=== PATIENT | female | born 2000 | race Caucasian/White ===

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

== ENCOUNTER 2021-01-03 12:36 | Emergency (ER) | payer OTHER, SELFPAY ==
[2021-01-03 12:37] VITALS: BP 128/73; PULSE 81; RESP 16; TEMP 36.8; O2SAT 98; BMI 24.9
[2021-01-03] MEDS: Orphenadrine 60 MG/2 ML Ampul IM (13:39)
[2021-01-03] MEDS: Ketorolac 30 MG/ML Syringe IM (13:39)
--- NOTE | 2021-01-03 14:39 | ED.VISSUMM ---
- ER Visit Summary Date of Service: 01/03/21 Chief Complaint: Back pain History of Present Illness: The patient is a [address] Escoto. She reports that she leaned over and had the abrupt onset of a low back pain. It is a continuous sharp pain is 910 at worst and 5-10 currently. Is worsened by movement or sitting up straight. Is relieved by leaning to the left and Tylenol. No radiation to her legs. No numbness or weakness in her legs. No problems with her bowels or bladder. No groin numbness. Patient denies any other preceding trauma. No fall, MVA, or change in activity. She denies red flags. Physical Examination: Vitals: Stable. Afebrile. General: A&O x 3. NAD. Cardiovascular exam: Regular rate and rhythm, no murmur, rub or gallop. Respiratory exam: Clear to auscultation bilaterally. No wheezes or stridor. Abdominal exam: Soft, nontender, nondistended, normal bowel sounds. No peritoneal signs. Back: Diffuse moderate tenderness to palpation over the lumbar spine and the paraspinous musculature in the lumbar region. No point tenderness. Negative straight leg bilaterally. 5/5 DF, PF, EHL bilaterally. Normal sensation to light touch throughout. Extremity: No clubbing, cyanosis, or edema. Test Results: An OARRS report was obtained which was negative. Emergency Department Course and Treatment: Patient was initially given Toradol and Norflex IM with no relief. She was then given [place] p.o. Treatment Plan: Patient will be discharged with naproxen and [place]. Instructed to follow-up with her primary care physician in 3 to 5 days if not improving. Return to the emergency department for any worsening symptoms. Disposition: To home in improved and stable condition. Impression: 1. Low back pain. This note was generated with atokore dictation software. It may contain incorrect words, spelling, and punctuation that were not noted in review of the chart prior to signing ED Disposition - Plan for ED Patient: Disposition: Home or Assisted Living Instructions: ED Back Spasm, No Trauma Prescriptions: Naproxen [Naprosyn] 500 mg PO BID #14 tablet Prescription Printed Hydrocodone Bitart/Apap 5-325 [[place] 5MG-325MG] 1 tablet PO Q4H PRN PRN 2 Days #10 tab PRN Reason: Pain Prescription Printed Referrals: Justin Carrizales MD [Primary Care Provider] - 3-5 Days if not improving
[2021-01-03] MEDS: Ondansetron ODT 4 MG Tablet PO (15:13)
[2021-01-03] MEDS: HYDROcodone Bitartrate/Apap 5/325 Tablet PO (15:13)
[2021-01-03 15:15] VITALS: BP 111/70; PULSE 69; RESP 16; O2SAT 96
== END 2021-01-03 15:16 | disposition home or self-care (01) ==
PROVIDERS: Emergency Provider Emergency Medicine; PCP Family Medicine
DX: M54.5 Low back pain (principal); M41.9 Scoliosis, unspecified
CPT/HCPCS: 96372; 99283

== ENCOUNTER 2021-12-24 21:58 | Emergency (ER) | payer OTHER, SELFPAY ==
[2021-12-24 21:59] VITALS: BP 112/70; PULSE 70; RESP 17; TEMP 36.8; O2SAT 100; BMI 25.7
--- NOTE | 2021-12-24 22:23 | EX.ED.VIS.EY ---
HPI History of Present Illness Chief Complaint: Eye Problem Narrative Narrative: 21-year-old female presenting today for both right eye pain and and right elbow pain. Patient states that she was at a trampoline park and she jumped down on the trampoline which she bounced up and hit her own right eye with her own right knee and did not get knocked out but felt foggy for a few hours. She had a superficial abrasion over the right eyelid. She does not have any visual complaints. No eye watering or discharge. She states that she is more concerned that her right elbow hurts and she does not know why. She has trouble straightening it and bending it. She does not recall hitting it. PFSH PFSH Home Medications naproxen 500 mg PO BID #14 tablet 01/03/21 [Rx Last Taken Unknown] naproxen [Naprosyn] 500 mg PO BID PRN #20 tab 12/24/21 [Rx Last Taken Unknown] Allergy/AdvReac Type Severity Reaction Status Date / Time No Known Allergies Allergy Verified 12/24/21 22:01 Social History Smoking Status: Never smoker ROS ROS ED Constitutional Constitutional ED: Denies chills or fever(s) Eyes Eyes: Reports other Details: Right periorbital bruising and swelling. Superficial eyelid abrasion to the right eye. ; Denies blurry vision or change in vision ENT ENT ED: Denies rhinorrhea or sore throat Cardiovascular Cardiovascular: Denies chest pain or palpitations Respiratory/Chest Respiratory/Chest: Denies cough or dyspnea Gastrointestinal Gastrointestinal: Denies abdominal pain, nausea or vomiting Genitourinary Genitourinary ED: Denies dysuria Musculoskeletal Musculoskeletal: Reports other Details: Right elbow pain ; Denies arthralgias or myalgias Integumentary Reports Abrasions Neurologic Neurologic: Denies headache(s) or paresthesias EXAM Physical Exam Const Vital Signs: 12/24/21 21:59 Temperature 98.2 F Temperature Source Temporal Pulse Rate 70 Respiratory Rate 17 Blood Pressure 112/70 Blood Pressure Mean 84 Pulse Ox 100 Oxygen Delivery Method Room Air HEENT HEENT Narrative: Periorbital bruising and swelling. Superficial abrasion to right eyelid. No active bleeding. Wound is well approximated. Eyes Pupil: PERRL and accommodation reflex normal Neck no lymphadenopathy and supple Resp normal respiratory effort Cardio regular rate and regular rhythm Extremity Extremity Narrative: Tenderness palpation of the right olecranon process. Full range of motion in extension but pain with flexion to the olecranon. Neuro oriented x3, CN's II-XII intact bilaterally, moves all extremities and no sensory deficits noted Sensorium / Orientation: alert and oriented to person Psych Mood & Affect: Negative for depressed or tearful MDM MDM MDM Narrative Medical decision making narrative: Patient presenting with supraorbital bruising. She has a small superficial abrasion of the right eyelid. This does not need any repair. Her visual acuity is normal at the bedside. She does not have any eye watering or concern for abrasion. Patient does have tenderness to palpation over the right olecranon. She has limited range of motion in flexion but extension, supination, pronation are normal. I will obtain an x-ray of the right elbow. X-ray of the right elbow on my interpretation shows no fracture or subluxation. Patient counseled she will need to alternate ice and heat and use NSAIDs for pain control. Patient likely has a mild concussion to from her head injury. I do not believe she needs CT imaging. She is given return precautions. Patient discharged in stable condition. Impression: 1. Closed head injury 2. Periorbital contusion on the right 3. Right elbow contusion 4. Superficial eyelid abrasion right eye Discharge Plan Triage Chief Complaint: Eye Problem ED Provider: Henry Sky Dx/Rx/DC Orders Instructions: ED Abrasion, ED Concussion, ED Contusion, Elbow, ED Facial Contusion Prescriptions: New naproxen [Naprosyn] 500 mg tablet 500 mg PO BID PRN (Reason: pain) Qty: 20 RF: 0 No Action naproxen 500 MG tablet 500 mg PO BID Qty: 14 RF: 0 Primary Care Provider: Justin Carrizales Referrals: Justin Carrizales MD [Primary Care Provider] - Disposition Disposition: Home, Self Care
--- NOTE | 2021-12-24 22:30 | RAD_ITS ---
STUDY: X-RAY - RIGHT ELBOW REASON FOR EXAM: Female, 21 years old. pain TECHNIQUE: 3 view(s) of the elbow. COMPARISON: None. FINDINGS: Normal visualized humerus, radius and ulna. Normal radiocapitellar and ulnotrochlear articulations. The soft tissue structures are unremarkable. RAD/Elbow min 3 Views IMPRESSION: Normal x-ray examination of the elbow. Electronically Signed: Chase Ross DO at 23:18 EDT ,
== END 2021-12-25 00:10 | disposition home or self-care (01) ==
PROVIDERS: Emergency Provider Student in an Organized Health Care Education/Training Program; PCP Family Medicine; Visit Provider Student in an Organized Health Care Education/Training Program
DX: S00.11XA Contusion of right eyelid and periocular area, initial encounter (principal); S50.01XA Contusion of right elbow, initial encounter; S00.211A Abrasion of right eyelid and periocular area, initial encounter; X58.XXXA Exposure to other specified factors, initial encounter; Y93.44 Activity, trampolining; Y92.830 Public park as the place of occurrence of the external cause
CPT/HCPCS: 73080; 99284

== ENCOUNTER 2022-01-11 16:16 | Outpatient (CLI) | payer OTHER, SELFPAY ==
[2022-01-11 17:48] LABS: Absolute Lymphocyte Count 2.82 X10^3/uL (0.83-4.51); Absolute Neutrophil Count 8.8 X10^3/uL (2.0-7.7); Basophil# 0.05 X10^3/uL; Basophil% 0.4 % (0-1); Eosinophil# 0.14 X10^3/uL; Eosinophils% 1.1 % (0-5); Hemoglobin 13.4 g/dL (12.0-15.0); Lymphocyte # 2.82 X10^3/ul (0.83-4.51); Mean Corp Hgb Conc 34.4 g/dL (32-36); Mean Corpuscular Volume 87.4 fL (81-99); Mean Platelet Vol. 10.2 fl (6.2-12.0); Monocyte# 0.91 X10^3/uL; Monocyte% 7.1 % (0-10); NRBC Flagged by Analyzer 0.2 % (0-5); Neutrophil # 8.84 X10^3/uL (2.7-7.7); Neutrophil % 69.2 % (47-70); Platelet Count 300 K/mm3 (150-450); RBC Distribution Width CV 12.3 % (11.6-14.6); RBC Distribution Width SD 39.2 fl (35.1-43.9); Red Blood Count 4.46 M/mm3 (4.2-5.4); White Blood Count 12.8 K/mm3 (4.4-11.0)
[2022-01-11 18:42] LABS: AST(SGOT) 13 U/L (15-37); Alanine Aminotransfer ALT/SGPT 18 U/L (13-56); Albumin, Serum 4.2 g/dL (3.2-5.0); Alkaline Phosphatase 80 U/L (45-117); Anion Gap 6 (5-15); BUN 8 mg/dL (7-18); BUN/Creat Ratio 13.9 RATIO (10-20); Calcium,Total 9.3 mg/dL (8.5-10.1); Chloride 106 mmol/L (98-107); Creatinine, Serum 0.57 mg/dL (0.55-1.02); EST Glomerular Filtration Rate 140 mL/min (>60); Est Glom Filt Rate - Afr Amer 169 mL/min (>60); Globulin 4.3 g/dL (2.2-4.2); Glucose 73 mg/dL (74-106); Potassium 3.8 mmol/L (3.5-5.1); Protein, Total 8.5 g/dL (6.4-8.2); Sodium Level 137 mmol/L (136-145)
[2022-01-14 18:17] LABS: EBV Acute VCA IgM < 36.0 U/mL (0.0-35.9); EBV Nuclear Antigen IgG < 18.0 U/mL (0.0-17.9); EBV-VCA IgG < 18.0 U/mL (0.0-17.9)
== END 2022-01-11 23:59 | disposition home or self-care (01) ==
PROVIDERS: PCP Family Medicine; Referring Provider Family Medicine; Visit Provider Family Medicine
DX: J02.9 Acute pharyngitis, unspecified (principal)
CPT/HCPCS: 36415; 80053; 85025; 86664; 86665; 87070

== ENCOUNTER 2022-03-12 15:32 | Outpatient (CLI) | payer OTHER, SELFPAY ==
--- NOTE | 2022-03-12 11:45 | TONS_PTH ---
PATIENT: CORA GREGG LOC: [facility] U#:[id number] AGE/SX: ROOM: RE03/12/[address]: Dr. Reji Tolentino MD : 2000 BED: DIS: 03/12/2022 SPEC #: [id number] RECD: 03/12/22 15:25 STATUS: JUAN REMed #: [id number] HEATHER: 03/12/22 11:[address]: Reji Tolentino DEPT: SURGICAL PATHOLOGY RECD BY: Daisy Prajapati ENTERED: 03/13/22 11:21 SP TYPE: TONSILS OTHR DR: Dr. Bienvenido Carrizales MD [facility] Tissues: Tonsil, NOS Procedures: Surgery Specimen Level III HEADER OPERATION: Tonsillectomy PRE-OP DIAGNOSIS: Chronic tonsillitis TISSUE SUBMITTED: Bilateral tonsils, pin on right MICROSCOPIC DIAGNOSIS Bilateral tonsils, tonsillectomy: Reactive lymphoid hyperplasia, consistent with chronic tonsillitis. SJ:олег 03/14/2022 MICROSCOPIC DESCRIPTION Slides are reviewed. GROSS DESCRIPTION Received is one container labeled with the patient's name and designated tonsils - pin on right are two tonsils that in aggregate weigh 20.8 gm. The right tonsil has a pin on it and measures 3.8 x 2.5 x 2 cm. The left tonsil measures 3.6 x 2.5 x 1.7 cm. Both tonsils are similar in appearance. The external surfaces are pink-biswas, smooth, glistening and somewhat lobulated. Focally they are hemorrhagic, granular and bear cautery artifact. Serial cross sections through the tonsils reveal normal tonsillar architecture. Sections are submitted in two cassettes as follows: 1 - right tonsil, 2 - left tonsil. / AM:олег 03/13/2022 TC:3 CPT: 68287 x2
== END 2022-03-12 23:59 | disposition home or self-care (01) ==
PROVIDERS: PCP Family Medicine; Visit Provider Otolaryngology
DX: J35.01 Chronic tonsillitis (principal)
CPT/HCPCS: 88304

== ENCOUNTER 2022-07-24 23:41 | Emergency (ER) | payer OTHER, SELFPAY ==
[2022-07-24 23:41] VITALS: BP 114/76; PULSE 75; RESP 18; TEMP 36.6; O2SAT 99; BMI 26.4
[2022-07-24 23:57] LABS: Bacteria 0 SEEN /hpf (None Seen); Mucous, Urine 0 SEEN /hpf (<or=2+); White Blood Cells 0 SEEN /hpf (0-5)
[2022-07-25 00:02] LABS: Color, Urine Yellow (Yellow); Glucose, Dipstick Normal (Normal); Ketone-Dipstick Negative (Negative); Leukocyte Esterase-Dipstick Negative /ul (Negative); Nitrite-Dipstick Negative (Negative); Occult Blood-Urine 50 /ul (Negative); Protein-Dipstick Negative (Negative); Urine Bilirubin Dipstick Negative (Negative); Urine Clarity Clear (Clear); Urine Urobilinogen Normal (Normal); Urine pH 6.5 (5.0 - 8.0)
[2022-07-25 00:10] LABS: Red Blood Cells-Urine 0-5 SEEN /hpf (0-5); Squamous Epithelial Cells - UA 0-5 SEEN /hpf (5-10)
--- NOTE | 2022-07-25 00:32 | CT_ITS ---
INDICATION: RLQ pain EXAMINATION: CT ABDOMEN AND PELVIS WITHOUT CONTRAST - CT Abdomen And Pelvis W/O Contrast Injection TECHNIQUE: Helically acquired images were obtained of the abdomen and pelvis without oral or IV contrast. A radiation dose optimization technique was used for this scan. IV Contrast dosage and agent: None. Oral contrast: Oral contrast administered.. COMPARISON: None. FINDINGS: LOWER CHEST: Lung bases are clear. No cardiomegaly or pericardial effusion. LIVER: Homogeneous. No focal mass. GALLBLADDER AND BILIARY TREE: No calcified gallstones. No gallbladder distension or wall edema. No intra- or extrahepatic biliary ductal dilation. PANCREAS: No focal cystic or solid mass. SPLEEN: Normal size without focal cystic or solid mass. ADRENAL GLANDS: No nodules. KIDNEYS AND URETERS: Normal renal size and position. No hydronephrosis. PERITONEUM: No ascites or free air. No other fluid collection. BOWEL: Normal appendix. No stomach or bowel distension. Moderate proximal colonic stool. LYMPH NODES: Subcentimeter lymph nodes present in the right lower quadrant and central small bowel mesentery, likely reactive.. VESSELS: Aorta is non-dilated. URINARY BLADDER: Unremarkable. REPRODUCTIVE ORGANS: Unremarkable uterus and adnexa.. ABDOMINAL WALL: No discrete abdominal or pelvic wall hernia. BONES: No lytic or blastic abnormality. CT/Abdomen/Pel W ORAL Cont Only IMPRESSION: Normal appendix. Nonspecific subcentimeter reactive right lower quadrant and central small bowel mesenteric lymph nodes. Moderate proximal colonic stool. Electronically Signed: Natalio Rod MD at 2:57 EDT ,
--- NOTE | 2022-07-25 00:33 | ED.VIS.GI ---
HPI HPI - GI History of Present Illness Chief Complaint: Abd Pain Narrative Narrative: Patient who denies significant past medical history presents with 1 to 2 months of right lower quadrant abdominal pain. She states over the last week it is gotten worse. She denies any fevers or chills, no nausea or vomiting. No dysuria or hematuria. No problems with bowel movements. She states her pain started intermittently and was more dull and achy but has turned sharp and stabbing over the last week and more constant. Last menstrual period ended 3 days ago. She denies any other exacerbating or alleviating factors except for maybe a getting worse when she moves. PFSH PFS Medical History no medical history Home Medications naproxen 500 mg tablet 500 mg PO BID #14 tabs 01/03/21 [Rx Last Taken Unknown] naproxen 500 mg tablet (Naprosyn) 500 mg PO BID PRN pain #20 tabs 12/24/21 [Rx Last Taken Unknown] Allergy/AdvReac Type Severity Reaction Status Date / Time No Known Allergies Allergy Verified 07/24/22 23:43 Surgical History no surgical history Social History Smoking Status: Never smoker ROS ROS ED ROS Narrative Constitutional: No fever, no chills. HEENT: No sore throat. No neck pain. No loss of vision. No rhinorrhea. Cardiovascular: No chest pain. No palpitations. No pedal edema. Respiratory: No cough, no shortness of breath. Abdominal: Right lower quadrant abdominal pain. No nausea. No vomiting. Genitourinary: No dysuria. No hematuria. Musculoskeletal: No myalgias. No arthralgias. Neurologic: No headaches. No dizziness. No lightheadedness. Skin: No rash. No change in color. Psychiatric: No depression. No anxiety. EXAM Physical Exam Narrative Exam Narrative: Afebrile. Vital signs noted. HEENT: Normocephalic. Atraumatic. PERRL, EOMI. Neck soft and supple. No point tenderness or step off. Cardiovascular: Regular rate and rhythm. No murmurs, rubs, or gallops appreciated. Respiratory: No tachypnea. Lungs clear to auscultation bilaterally. Gastrointestinal: Abdomen soft, mild tenderness to palpation right lower quadrant, with normoactive bowel sounds. No rebound or guarding. Neurological: Awake. Alert. Nonfocal, nonlateralizing. Skin: No rash. Normal color. No pallor. Musculoskeletal: No pedal edema. Full range of motion extremities. Const Vital Signs: 07/24/22 23:41 Temperature 97.9 F Temperature Source Temporal Pulse Rate 75 Respiratory Rate 18 Blood Pressure 114/76 Blood Pressure Mean 88 Pulse Ox 99 Oxygen Delivery Method Room Air MDM MDM MDM Narrative Medical decision making narrative: Urinalysis obtained per protocol is negative for infection. Comprehensive work-up was then pursued. She was bolused normal saline. CT imaging with IV contrast was obtained along with CBC and CMP. Serum test was also obtained. Patient did not tolerate the IV so it was taken out. CT of the abdomen and pelvis without contrast was obtained. Her CBC is grossly normal with a normal white count of 6.9, normal hemoglobin of 13.3 and normal platelet count of 270. Electrolyte panel shows chloride slightly elevated at 109 with an AST of 14, otherwise unremarkable. Urinalysis shows no evidence of infection. CT shows a normal appendix and no evidence of obstruction. There is proximal colonic stool. At this point in time, she was told to take an [id number] stool softener and a gentle laxative such as MiraLAX. She wants to go home. I feel she can be discharged safely home with follow-up to her primary care physician. Return instructions to the emergency department were reviewed. Disposition is discharged home in stable condition. Lab Data Attestation: I reviewed the patient's lab results. Labs: Laboratory Results - last 24 hr 07/24/22 07/25/22 07/25/22 23:50 00:55 00:55 WBC 6.9 RBC 4.40 Hgb 13.3 Hct 39.0 MCV 88.6 MCH 30.2 MCHC 34.1 RDW Std Deviation 40.1 RDW Coeff of [place] 12.3 Plt Count 270 MPV 9.9 Immature Gran % (Auto) 0.100 Neut % (Auto) 45.8 L Lymph % (Auto) 39.0 Petroleum % (Auto) 12.5 H Eos % (Auto) 2.0 Baso % (Auto) 0.6 Absolute Neuts (auto) 3.2 Absolute Lymphs (auto) 2.71 Nucleated RBC % 0 Sodium 141 Potassium 3.5 Chloride 109 H Carbon Dioxide 26.0 Anion Gap 6 BUN 10 Creatinine 0.69 Estim Creat Clear Calc 110.43 Est GFR (MDRD) Af Amer 136 Est GFR (MDRD) Non-Af 113 BUN/Creatinine Ratio 14.5 Glucose 96 Calcium 9.4 Total Bilirubin 0.40 AST 14 L ALT 18 Alkaline Phosphatase 66 Total Protein 8.4 H Albumin 4.2 Globulin 4.2 Albumin/Globulin Ratio 1.0 Serum , Qual Urine Color Yellow Urine Clarity Clear Urine pH 6.5 Ur Specific [place] 1.010 Urine Protein Negative Urine Glucose (UA) Normal Urine Ketones Negative Urine Occult Blood 50 H Urine Nitrite Negative Urine Bilirubin Negative Urine Urobilinogen Normal Ur Leukocyte Esterase Negative Urine RBC 0-5 SEEN Urine WBC 0 SEEN Ur Squamous Epith Cells 0-5 SEEN Urine Bacteria 0 SEEN Urine Mucus 0 SEEN 07/25/22 00:55 WBC RBC Hgb Hct MCV MCH MCHC RDW Std Deviation RDW Coeff of [place] Plt Count MPV Immature Gran % (Auto) Neut % (Auto) Lymph % (Auto) Petroleum % (Auto) Eos % (Auto) Baso % (Auto) Absolute Neuts (auto) Absolute Lymphs (auto) Nucleated RBC % Sodium Potassium Chloride Carbon Dioxide Anion Gap BUN Creatinine Estim Creat Clear Calc Est GFR (MDRD) Af Amer Est GFR (MDRD) Non-Af BUN/Creatinine Ratio Glucose Calcium Total Bilirubin AST ALT Alkaline Phosphatase Total Protein Albumin Globulin Albumin/Globulin Ratio Serum , Qual NEGATIVE Urine Color Urine Clarity Urine pH Ur Specific [place] Urine Protein Urine Glucose (UA) Urine Ketones Urine Occult Blood Urine Nitrite Urine Bilirubin Urine Urobilinogen Ur Leukocyte Esterase Urine RBC Urine WBC Ur Squamous Epith Cells Urine Bacteria Urine Mucus Radiography Diagnostic Testing: Clinical Impression(s) from Imaging Studies Abdomen CT 07/25/22 00:32 IMPRESSION: Normal appendix. Nonspecific subcentimeter reactive right lower quadrant and central small bowel mesenteric lymph nodes. Moderate proximal colonic stool. Electronically Signed: Natalio Rod MD at 2:57 EDT , Discharge Plan Triage Chief Complaint: Abd Pain ED Provider: Danny Dooley Dx/Rx/DC Orders Clinical Impression: Abdominal pain, No significant past medical history Instructions: ED Abdominal Pain Unkn Cause Fem Prescriptions: No Action naproxen 500 MG tablet 500 mg PO BID Qty: 14 0RF naproxen [Naprosyn] 500 mg tablet 500 mg PO BID PRN (Reason: pain) Qty: 20 0RF Primary Care Provider: Justin Carrizales Referrals: Justin Carrizales MD [Primary Care Provider] - 1 Week if not improving Activity Restrictions/Additional Instructions: Start an [id number] stool softener and/or gentle laxative like MiraLAX. Disposition Disposition: Home, Self Care
[2022-07-25 01:06] LABS: Absolute Lymphocyte Count 2.71 X10^3/uL (0.83-4.51); Absolute Neutrophil Count 3.2 X10^3/uL (2.0-7.7); Basophil# 0.04 X10^3/uL; Basophil% 0.6 % (0-1); Eosinophil# 0.14 X10^3/uL; Hemoglobin 13.3 g/dL (12.0-15.0); Lymphocyte # 2.71 X10^3/ul (0.83-4.51); Mean Corp Hgb Conc 34.1 g/dL (32-36); Mean Corpuscular Hgb 30.2 pg (27.0-32.0); Mean Corpuscular Volume 88.6 fL (81-99); Mean Platelet Vol. 9.9 fl (6.2-12.0); Monocyte# 0.87 X10^3/uL; Monocyte% 12.5 % (0-10); NRBC Flagged by Analyzer 0 % (0-5); Neutrophil # 3.17 X10^3/uL (2.7-7.7); Neutrophil % 45.8 % (47-70); Platelet Count 270 K/mm3 (150-450); RBC Distribution Width CV 12.3 % (11.6-14.6); RBC Distribution Width SD 40.1 fl (35.1-43.9); White Blood Count 6.9 K/mm3 (4.4-11.0)
[2022-07-25 01:20] LABS: Internal QC Validated? YES +Cl - CLEAR BKGD; Pregnancy, Serum, hCG Quali. NEGATIVE Negative
[2022-07-25] MEDS: 0.9% Normal Saline 1,000 ML 1000 ML IV (01:26)
[2022-07-25 01:29] LABS: AST(SGOT) 14 U/L (15-37); Alanine Aminotransfer ALT/SGPT 18 U/L (13-56); Albumin, Serum 4.2 g/dL (3.2-5.0); Alkaline Phosphatase 66 U/L (45-117); Anion Gap 6 (5-15); BUN 10 mg/dL (7-18); BUN/Creat Ratio 14.5 RATIO (10-20); Calcium,Total 9.4 mg/dL (8.5-10.1); Chloride 109 mmol/L (98-107); Creatinine, Serum 0.69 mg/dL (0.55-1.02); EST Glomerular Filtration Rate 113 mL/min (>60); Est Glom Filt Rate - Afr Amer 136 mL/min (>60); Estimated Creatinine Clearance 110.43 ml/min; Globulin 4.2 g/dL (2.2-4.2); Glucose 96 mg/dL (74-106); Potassium 3.5 mmol/L (3.5-5.1); Protein, Total 8.4 g/dL (6.4-8.2); Sodium Level 141 mmol/L (136-145)
[2022-07-25 03:29] VITALS: BP 111/76; PULSE 65; RESP 16; O2SAT 99
== END 2022-07-25 03:30 | disposition home or self-care (01) ==
PROVIDERS: Emergency Provider Emergency Medicine; PCP Family Medicine; Visit Provider Emergency Medicine
DX: R10.31 Right lower quadrant pain (principal)
CPT/HCPCS: 74176; 80053; 81001; 84703; 85025; 99283; J7030; A4216